=== PATIENT | female | born 1985 | race African-American/Black ===

== ENCOUNTER 2020-07-01 23:25 | Emergency (ER) | payer MEDICARE, MEDICAID | END 2020-07-01 23:47 | disposition home or self-care (01) | LOC: ERS 23:25 | DX: E86.0 Dehydration (principal) | CPT/HCPCS: 36416; 99284 ==

== ENCOUNTER 2020-07-13 23:23 | Emergency (ER) | payer MEDICARE, MEDICAID | END 2020-07-14 00:47 | disposition home or self-care (01) | LOC: ERS 23:23 | DX: R53.1 Weakness (principal); J45.909 Unspecified asthma, uncomplicated; I10 Essential (primary) hypertension | CPT/HCPCS: 36416; 93005 ==